=== PATIENT | male | born 1950 | race Caucasian/White ===

== ENCOUNTER 2021-07-16 08:40 | Day surgery (SDC) | payer MEDICARE, BC ==
[~2021-07-16] VITALS: Ht 167.6 cm; Wt 76.7 kg
[2021-07-16] VITALS (12 sets, daily range): BP systolic 101–177; BP diastolic 54–83; PULSE 47–63; TEMP 97.9
[2021-07-16] MEDS ORDERED: NAMENDA5 MG PO (09:33)
[2021-07-16] MEDS ORDERED: FLOMAX 0.40.4 MG/CAP PO (09:34)
[2021-07-16] MEDS ORDERED: ARICEPT10 MG PO (09:34)
[2021-07-16] MEDS ORDERED: LIPITOR20 MG PO (09:35)
[2021-07-16] MEDS ORDERED: PROSCAR 5MG5 MG PO (09:35)
[2021-07-16] MEDS ORDERED: ONE-A-DAY ESSE1 EACH PO (09:36)
[2021-07-16] MEDS ORDERED: ZOLOFT 100MG100 MG PO (09:37)
[2021-07-16] MEDS ORDERED: COUMADIN 3MG3 MG/TAB PO ×2 (09:38)
[2021-07-16] MEDS ORDERED: ASPIRIN E.C. 8181 MG PO (09:39)
[2021-07-16] MEDS ORDERED: CORDARONE200 MG/TAB PO (09:39)
[2021-07-16] MEDS ORDERED: PRINIVIL20 MG PO (09:40)
[2021-07-16] MEDS ORDERED: TOPROL XL 50MG50 MG PO (09:41)
[2021-07-16 09:50] LABS: HEMATOCRIT 40.8 % (42.0-52.0); MEAN CELL VOLUME 90 fl (80.0-100.0); MEAN CORPUSCULAR HEMOGLOBIN 29 pg (27.0-31.0); MEAN CORPUSCULAR HGB CONC 32 g/dl (33.0-37.0); MEAN PLATELET VOLUME 10.7 fl (7.4-10.4); PLATELET COUNT 171 K/mm3 (130-400); RED BLOOD COUNT 4.56 M/mm3 (4.20-5.60); REDCELL DISTRIBUTION WIDTH-CV 15.9 % (11.5-14.5)
[2021-07-16 09:53] LABS: INR 1.6 (0.8-3.0); PROTHROMBIN TIME 17.3 SECONDS (9.7-12.8)
[2021-07-16 09:55] LABS: CALCIUM 8.7 mg/dL (8.4-10.2); CREATININE, serum 0.95 (0.66-1.25); POTASSIUM 4.2 mmol/L (3.4-5.0)
[2021-07-16 09:56] LABS: PARTIAL THROMBOPLASTIN TIME 34.4 SECONDS (26.0-37.0)
--- NOTE | 2021-07-16 12:45 | NUR ---
Pt back from pharmacy laboratory technician after [facility]. BS report from Sridhar GAYTAN. at bs. Pt is awake and alert, pwd, mental status consistent with baseline. sinus butch on monitor, telemetry initiated. Rt groin site soft, cms intact distal. Pt and updated on poc, including bedrest x 6 hours. lunch ordered.
--- NOTE | 2021-07-16 16:00 | NUR ---
PT doing well during his recovery. Pt has eaten lunch. he has been able to use urinal with help without difficulty. pt has occasionally been napping. He has needed some reminders not to move rt leg, but for the most part has been very cooperative with post procedure instructions.
--- NOTE | 2021-07-16 17:31 | NUR ---
PT TOLERATING BEDREST WITHOUT SERIOUS COMPLAINT. RT GROIN SITE REMAINS SOFT. NO EVIDENCE OF BLEEDING NOTED. I REVIEWED DC AND FU INSTRUCTIONS WITH PATIENT AND . PT AND INSTRUCTED TO HOLD COUMADIN UNTIL FOLLOW UP APPT ON FRIDAY. VERBALIZED UNDERSTANDING.
--- NOTE | 2021-07-16 19:00 | NUR ---
1830. bedrest complete. pt is up and ambulatory with steady gait around nurses station. Pt got dressed with no problem, and is ready for departure. rt groin site unchanged, it is soft, no evidence of bleeding. IV dc'd with cath intact, dressing applied. I escorted pt to exit via wheelchair.
== END 2021-07-16 19:03 | disposition home or self-care (01) ==
LOC: COL.CAR 08:40
PROVIDERS: Internal Medicine Cardiovascular Disease
DX: I25.10 Atherosclerotic heart disease of native coronary artery without angina pectoris (principal); R42 Dizziness and giddiness; I48.0 Paroxysmal atrial fibrillation; I25.2 Old myocardial infarction; I10 Essential (primary) hypertension; E78.5 Hyperlipidemia, unspecified; F01.50 Vascular dementia, unspecified severity, without behavioral disturbance, psychotic disturbance, mood disturbance, and anxiety; Z79.82 Long term (current) use of aspirin; Z79.899 Other long term (current) drug therapy; Z95.1 Presence of aortocoronary bypass graft; Z79.01 Long term (current) use of anticoagulants; Z87.891 Personal history of nicotine dependence
CPT/HCPCS: C1760; C1769; C1894; J0360; J1644; Q9967

== ENCOUNTER 2021-09-05 01:15 | Observation (INO) | payer MEDICARE, BC ==
[~2021-09-05] VITALS: Ht 170.2 cm; Wt 78.5 kg
[2021-09-05] VITALS (13 sets, daily range): BP systolic 95–210; BP diastolic 44–91; PULSE 47–72; TEMP 97.9–99.3
[~2021-09-05 01:15] MED LIST: ARICEPT10 MG PO; ASPIRIN E.C. 8181 MG PO; CORDARONE200 MG/TAB PO; COUMADIN 3MG3 MG/TAB PO; FLOMAX 0.40.4 MG/CAP PO; LIPITOR20 MG PO; NAMENDA5 MG PO; ONE-A-DAY ESSE1 EACH PO; PRINIVIL20 MG PO; PROSCAR 5MG5 MG PO; TOPROL XL 50MG50 MG PO; ZOLOFT 100MG100 MG PO
[2021-09-05 01:31] LABS: HEMATOCRIT 43.4 % (42.0-52.0); MEAN CELL VOLUME 92 fl (80.0-100.0); MEAN CORPUSCULAR HEMOGLOBIN 30 pg (27.0-31.0); MEAN CORPUSCULAR HGB CONC 32 g/dl (33.0-37.0); MEAN PLATELET VOLUME 10.3 fl (7.4-10.4); PLATELET COUNT 253 K/mm3 (130-400); RED BLOOD COUNT 4.73 M/mm3 (4.20-5.60); REDCELL DISTRIBUTION WIDTH-CV 15.7 % (11.5-14.5)
[2021-09-05 01:39] LABS: INR 1.4 (0.8-3.0)
[2021-09-05 01:42] LABS: PARTIAL THROMBOPLASTIN TIME 30.4 SECONDS (26.0-37.0)
[2021-09-05 01:48] LABS: ALBUMIN 3.8 gm/dL (3.4-4.8); BILIRUBIN,TOTAL 0.8 mg/dL (0.2-1.2); CALCIUM 9.9 mg/dL (8.4-10.2); CREATININE, serum 1.26 mg/dL (0.72-1.25); POTASSIUM 4.2 mmol/L (3.5-4.5)
[2021-09-05 02:06] LABS: LYMPHOCYTE 3 % (20.0-51.0); NEUTROPHILS 93 % (42.0-75.2)
[2021-09-05 02:07] LABS: ANISOCYTOSIS 1+; HYPOCHROMIA 1+; PLATELET ESTIMATE NORMAL (NORMAL); POIKILOCYTOSIS 1+
[2021-09-05 02:08] LABS: OVALOCYTES 1+
[2021-09-05 02:18] LABS: COLLECTION METHOD CATHETER
[2021-09-05 02:27] LABS: PH 7 (5-8); SQUAMOUS EPITHELIAL None Seen /hpf; URINE APPEARANCE Turbid; URINE BACTERIA None Seen /hpf; URINE BILIRUBIN Negative (NEGATIVE); URINE BLOOD 3+ (NEGATIVE); URINE COLOR Red; URINE GLUCOSE 3+ (NEGATIVE); URINE KETONE 1+ (NEGATIVE); URINE LEUKOCYTE ESTERASE Negative (NEGATIVE); URINE NITRATE Positive (NEGATIVE); URINE PROTEIN(semi-quant) 3+ (NEGATIVE); URINE RBC >50 /hpf; URINE UROBILINOGEN Negative (NEGATIVE)
--- NOTE | 2021-09-05 04:47 | NUR ---
Pt. came to the floor via stretcher around 0300. Pt. has continually had extreme discomfort and feelings of needing to urinate. Pt. is alert but confused r/t dementia. Pt. is getting agitated because he feels we will not allow his to use the bathroom. This nurse has reminded the pt. several times that he has a catheter. Pt. has a [address]anda cathater that was placed by this nurse. CBI is running. Manually irrigated catheter when irrigation slowed. This nurse unable to remove very many clots. Dr. Matias notified. Plan to go to the OR this am.
--- NOTE | 2021-09-05 05:15 | NUR ---
Pt. to the OR at this time.
[2021-09-05] MEDS ORDERED: ARICEPT10 MG PO (07:36)
[2021-09-05] MEDS ORDERED: NAMENDA5 MG PO (07:37)
[2021-09-05] MEDS ORDERED: FLONASE NASAL S16 GM NS (07:38)
--- NOTE | 2021-09-05 08:58 | NUR ---
Patient resting in bed. Sleeping soundly post op. Vitals stable on O2. High fall risk protocol followed. His went home to rest. Cbi to very slow drip output slightly orange tinged. Ivf per orders. Will let him rest & monitor closely.
--- NOTE | 2021-09-05 10:09 | NUR ---
Patient continues to rest. Vss. Will monitor.
--- NOTE | 2021-09-05 10:24 | NUR ---
SW met with patient at bedside to discuss d/c planning; however, patient is extremely confused. When this worker asked him where he was he said "home" and went on to say he his high school [employer] and bought "this home" 2 yrs ago. Patient unable to name PCP or pharmacy. SW will return when patient is more cognitive. SW contacted patient's , Lenora ([phone]. She is also patient's MPOA as well as pt's two sons. reports that she has been told by a doc in the past that its possible [facility]. states that he has been hospitalized many times and that his dementia is worsening. She further states he has a walker but does not use it; he is beginning to shuffle per . They use [facility] for medications and they have no difficulty affording it. PCP is Dr. Jess Moy in [place]. D/C Plan: Awaiting recommendations
--- NOTE | 2021-09-05 10:51 | NUR ---
Patient awake. Requesting water. Patient oriented to place & time. He is wondering where is is. Vitasl remains stable. Cbi remains to a slow drip. Lunch ordered.
--- NOTE | 2021-09-05 14:37 | NUR ---
Patient continues to rest. here to check in on him, updated her on status. Polanco remains to DD with yellow/orange output with sediment noted. He did not eat lunch because he fell back asleep.
--- NOTE | 2021-09-05 16:37 | NUR ---
Patient resting, He did wake up disoriented. Reoriented as needed. Vss. Will monitor.
--- NOTE | 2021-09-05 16:42 | NUR ---
SW spoke with patient's ; informed her that p/t and o/t were going to be ordered for any additional services such as home health. is very open to this and states that her son is a physical therapist. SW will touch base with tomorrow prior to discharge to see what therapy is recommending.
--- NOTE | 2021-09-05 18:19 | NUR ---
Patient tolerated dinner, his assisted. Patient CBI continues to a slow rate. He is resting, his home for the night. Will report off to nightnurse
--- NOTE | 2021-09-05 19:03 | NUR ---
Patient resting. Bedside report to Alicia GAYTAN
--- NOTE | 2021-09-05 20:53 | NUR ---
Patient assessed around 1949. Oriented to self only. Reoriented, but forgetful. Denies pain and discomfort, and shows no s/sx of pain or discomfort at this time. Peripheral INT to left forearm. Patient's oxygen level 89% on room air. Put on oxygen at 2 L/min via NC, and increasd to 95%. Called and updated RT. LS CTA in upper lobes, diminished in lower. Respirations even and unlabored. Telemetry: HR irregular. Indwelling miranda catheter patent. CBI running slow, with clear yellow output. Resting in bed with call light within reach. High fall risk precautions in place.
[2021-09-06 04:05] VITALS: BP 103/44; PULSE 57; TEMP 98.5
--- NOTE | 2021-09-06 04:56 | NUR ---
Patient has been resting in bed with call light within reach. Continues on CBI, running slowly. Urine output dark yellow. No clots or hematuria noted so far this shift. IV fluids running per orders. Encouraged oral intake. Given PRN APAP once this shift, as patient stated he was having some pain, but denies needing anything more for pain at this time. Resting in bed with call light within reach. Bed alarm on.
[2021-09-06 08:01] VITALS: BP 125/56; PULSE 103; TEMP 98.2
--- NOTE | 2021-09-06 09:31 | NUR ---
Initial visit; Patient thanked Refining Supervisor for stopping and offering God's blessings.
--- NOTE | 2021-09-06 09:45 | NUR ---
Patient up to chair this am. Oriented to self & place. He did well with Breakfast. rounded & plan of care reviewed. Miranda primed & pulled & 6 bottle routine started per orders. He tolerated miranda removal well. Assisted with hygeine & fresh linens. high fall risk followed. Will monitor.
--- NOTE | 2021-09-06 10:46 | NUR ---
Patient ambulated in halls with therapy. He has voided once. Resting in bed now. Will monitor.
[2021-09-06 12:01] VITALS: BP 135/745; PULSE 63; TEMP 98.4
--- NOTE | 2021-09-06 12:58 | NUR ---
Patient incontintent of urine & voided small amount in urinal. He did well with lunch. remains at bedside & encourages patient to drink fluids.
--- NOTE | 2021-09-06 13:45 | NUR ---
NANCY faxed referral to [facility] as [facility] by OT. NANCY attempted to contact patient's but no answer, nancy left message with contact # D/C home with and [facility]
--- NOTE | 2021-09-06 13:50 | NUR ---
Patient ready for discharge. Patient agrees that he is ready to get home. Patient voided in urinal again & also had an incontinent urine. Briefs provdied with robyn. All discharge education given. We reviewed follow up appt. & medication list with changes made. Patient and his deny question or concerns. Patient wheeled out with all belongings. Int dc.
--- NOTE | 2021-09-10 15:30 | NUR ---
transition social worker spoke with Riki at [facility] and also with Dr Moy's office and confirmed that Dr Moy's office gave home health orders to [facility].
== END 2021-09-06 14:22 | disposition home or self-care (01) ==
LOC: COL.ER 01:15 → SURG 03:07
PROVIDERS: Student in an Organized Health Care Education/Training Program; ADMIT Urology
DX: R31.0 Gross hematuria (principal); E78.5 Hyperlipidemia, unspecified; I25.10 Atherosclerotic heart disease of native coronary artery without angina pectoris; I10 Essential (primary) hypertension; I48.91 Unspecified atrial fibrillation; N40.0 Benign prostatic hyperplasia without lower urinary tract symptoms; Z87.891 Personal history of nicotine dependence; Z79.82 Long term (current) use of aspirin; Z79.01 Long term (current) use of anticoagulants; Z79.899 Other long term (current) drug therapy; Z95.1 Presence of aortocoronary bypass graft; Z90.89 Acquired absence of other organs; Z90.49 Acquired absence of other specified parts of digestive tract
CPT/HCPCS: G0378; J0360; J0690; J2270; J2405; J2704; J3480; J7030